=== PATIENT | male | born 2000 | race Hispanic/Latino ===

== ENCOUNTER 2021-08-22 14:22 | Outpatient (CLI) | payer OTHER | END 2021-08-22 14:23 | disposition home or self-care (01) | LOC: BICRAD 14:22 | PROVIDERS: ATTEND Nurse Practitioner Family | DX: R00.2 Palpitations (principal); R53.83 Other fatigue; R06.02 Shortness of breath; M89.8X1 Other specified disorders of bone, shoulder | CPT/HCPCS: 71046 ==